=== PATIENT | male | born 1985 | race Caucasian/White ===

== ENCOUNTER 2020-01-08 10:00 | Outpatient (RCR) | payer OTHER, SELFPAY | END 2020-01-08 23:59 | disposition home or self-care (01) | LOC: ANHAUDIO 10:00 | DX: Z46.1 Encounter for fitting and adjustment of hearing aid (principal) | CPT/HCPCS: 99199; V5160; V5261; V5264 ==

== ENCOUNTER 2020-03-29 10:27 | Emergency (ER) | payer OTHER, SELFPAY ==
[2020-03-29 10:36] VITALS: BP 102/76; PULSE 74; RESP 18; TEMP 36.6; O2SAT 99
--- NOTE | 2020-03-29 11:21 | ED.EYEPROB ---
HPI - Eye Problem General Chief complaint: Eye Problems Stated complaint: left eye red and swollen Time Seen by Provider: 03/29/20 11:13 Source: patient and RN notes reviewed Mode of arrival: ambulatory Limitations: no limitations History of Present Illness HPI Narrative: Patient presents today complaining of burning to his left eye since last night. States the burning and irritation began after he was digging in his eye with his finger and fingernail trying to get an eyelash out. Denies pain in the eye. Denies foreign body sensation. Denies vision changes or photophobia. States [facility] at a [facility] and needs to know if he is contagious as he does not want to be stuck in his room quarantined away from everyone else. Related Data Home Medications Medication Instructions Recorded Confirmed aripiprazole 10 mg PO DAILY 03/29/20 03/29/20 dextroamphetamine-amphetamine 10 mg PO DAILY 03/29/20 03/29/20 divalproex 500 mg PO DAILY 03/29/20 03/29/20 fluticasone propionate See Rx Instructions .ROUTE .COMPLEX 03/29/20 03/29/20 levothyroxine 75 mcg PO DAILY 03/29/20 03/29/20 ldsswegh-dyni-NP-calcium-mins 1 tablet PO DAILY 03/29/20 03/29/20 [Thera-M] risperidone 0.5 mg PO DAILY 03/29/20 03/29/20 Allergies Allergy/AdvReac Type Severity Reaction Status Date / Time Sulfa (Sulfonamide Allergy Intermediate Hives / Verified 03/29/20 10:55 Antibiotics) Red Face sulfamethoxazole Allergy Intermediate Hives / Verified 03/29/20 10:55 Red Face trimethoprim Allergy Intermediate Hives / Verified 03/29/20 10:55 Red Face Review of Systems Review of Systems: Narrative: CONSTITUTIONAL: Denies body aches, fever, chills, or sweats. EYES: Denies visual changes, or discharge. + Left eye irritation ENT: Denies rhinorrhea, congestion, sore throat, or otalgia. CARDIOVASCULAR: Denies chest pain, palpitations, or edema. RESPIRATORY: Denies cough or dyspnea. GASTROINTESTINAL: Denies abdominal pain, nausea, vomiting, or diarrhea. GENITOURINARY: Denies dysuria or hematuria. SKIN: Denies rash, itching, or wounds. MUSCULOSKELETAL: Denies back pain, joint pain, or myalgia. NEUROLOGIC: Denies headache, numbness, tingling, or weakness. PSYCH: Denies depression or anxiety. [facility] Past Medical History Medical History (Updated 03/29/20 @ 18:57 by Vika Rios, VENDOR ANALYST, ) ADHD Anxiety Asperger syndrome Disorder of intellectual development Hypothyroidism Impulse control disorder Obstructive sleep apnea Comments At time of signature, I have reviewed and agree with nursing past medical, surgical, social and family history unless otherwise noted. Please see nursing chart for further information. There is no relevant family history pertinent to the presenting complaint Exam Narrative: Exam Narrative: GENERAL: Well-appearing, well-nourished, and in no acute distress. HEAD: Normocephalic, atraumatic. EYES: EOMI. PERRL. Left eye: Conjunctiva is injected and edematous. No drainage or tearing. No matting. Lids and lashes normal. No fluorescein uptake. ENT: Mucous membranes pink and moist. NECK: Normal AROM. Supple. No lymphadenopathy. CHEST: No respiratory distress. EXTREMITIES: Normal range of motion. No edema. SKIN: Warm, dry, no rash. Capillary refill normal. Normal skin turgor. NEURO: No focal deficits. Alert and oriented x3. Gait steady. PSYCH: Normal affect. No signs of depression or anxiety. Course Vital Signs Vital signs: Vital Signs Temperature 97.9 F 03/29/20 10:36 Pulse Rate 74 03/29/20 10:36 Respiratory Rate 18 03/29/20 10:36 Blood Pressure 102/76 03/29/20 10:36 Pulse Oximetry 99 03/29/20 10:36 Temperature 97.9 F 03/29/20 10:36 Pulse Rate 74 03/29/20 10:36 Respiratory Rate 18 03/29/20 10:36 Blood Pressure 102/76 03/29/20 10:36 Pulse Oximetry 99 03/29/20 10:36 Reviewed MDM - Eye Problem Differential Diagnosis Differential diagnosis: Likely corneal abrasion, conjuncti
== END 2020-03-29 11:35 | disposition home or self-care (01) ==
PROVIDERS: Emergency Provider Nurse Practitioner
DX: H57.89 Other specified disorders of eye and adnexa (principal); F90.9 Attention-deficit hyperactivity disorder, unspecified type; F84.5 Asperger's syndrome; F79 Unspecified intellectual disabilities; E03.9 Hypothyroidism, unspecified; F63.9 Impulse disorder, unspecified; G47.33 Obstructive sleep apnea (adult) (pediatric)
CPT/HCPCS: 99212; G0463

== ENCOUNTER 2020-09-21 13:00 | Outpatient (RCR) | payer OTHER, SELFPAY | END 2020-10-25 23:59 | disposition home or self-care (01) | LOC: ANHBWCAUD 13:00 | PROVIDERS: PCP Family Medicine; Visit Provider Family Medicine | DX: Z46.1 Encounter for fitting and adjustment of hearing aid (principal) | CPT/HCPCS: 99199 ==

== ENCOUNTER 2021-04-19 10:00 | Outpatient (CLI) | payer OTHER, SELFPAY | END 2021-04-19 10:01 | disposition home or self-care (01) | LOC: ANHBWCAUD 10:00 | PROVIDERS: PCP Family Medicine; Visit Provider Family Medicine | DX: H90.3 Sensorineural hearing loss, bilateral (principal) | CPT/HCPCS: 92557; 92567 ==

== ENCOUNTER 2022-04-25 09:13 | Outpatient (CLI) | payer OTHER, SELFPAY | END 2022-04-25 09:14 | disposition home or self-care (01) | LOC: ANHBWCAUD 09:13 | PROVIDERS: PCP Family Medicine; Visit Provider Family Medicine | DX: Z01.10 Encounter for examination of ears and hearing without abnormal findings (principal); H90.3 Sensorineural hearing loss, bilateral | CPT/HCPCS: 92557; 92567 ==

== ENCOUNTER 2023-04-03 13:01 | Outpatient (RCR) | payer OTHER, SELFPAY | END 2023-07-02 23:59 | disposition home or self-care (01) | LOC: ANHBWCAUD 13:01 | PROVIDERS: PCP Family Medicine; Visit Provider Nurse Practitioner Adult Health | DX: Z46.1 Encounter for fitting and adjustment of hearing aid (principal) | CPT/HCPCS: 92593 ==